=== PATIENT | male | born 1965 | race African-American/Black ===

== ENCOUNTER 2016-10-14 08:52 | Emergency (ER) | payer MEDICAID, OTHER ==
[~2016-10-14] VITALS: Ht 167.6 cm; Wt 111.1 kg
[2016-10-14 09:16] VITALS: BP 143/91
== END 2016-10-14 10:21 | disposition home or self-care (01) ==
LOC: ER 08:52
DX: J40 Bronchitis, not specified as acute or chronic (principal); E78.5 Hyperlipidemia, unspecified; I10 Essential (primary) hypertension
CPT/HCPCS: 71020

== ENCOUNTER 2017-08-16 07:48 | Emergency (ER) | payer OTHER ==
[~2017-08-16] VITALS: Ht 167.6 cm; Wt 107.5 kg
[2017-08-16 07:53] VITALS: BP 148/95
== END 2017-08-16 11:47 | disposition left against medical advice (07) ==
LOC: ER 07:48
DX: R11.2 Nausea with vomiting, unspecified (principal); Z53.21 Procedure and treatment not carried out due to patient leaving prior to being seen by health care provider

== ENCOUNTER 2023-06-07 16:51 | Emergency (ER) | payer OTHER ==
[~2023-06-07] VITALS: Ht 167.6 cm; Wt 109.0 kg
[2023-06-07] MEDS ORDERED: SODIUM CHLORIDE 0.9% 500 ML IVB ONE (17:00)
[2023-06-07 17:05] VITALS: PULSE 95; RESP 16; TEMP 98.6; O2SAT 93
[2023-06-07 17:14] VITALS: BP 150/92; RESP 12; O2SAT 89
[2023-06-07 17:14] LABS: Basophils # (auto) 0 10 ^3/uL (0-0.2); Basophils % (auto) 0.4 % (0.0-2.0); Eosinophils # (auto) 0 10 ^3/uL (0-0.8); Eosinophils % (auto) 0.3 % (0.0-7.0); Hematocrit 45.4 % (41.0-53.0); Hemoglobin 14.9 g/dL (13.5-17.5); Lymphocytes # (auto) 1.6 10 ^3/uL (0.4-5.4); Lymphocytes % (auto) 22.1 % (10.0-50.0); Mean Corpuscular Hemoglobin 30.4 pg (28.0-32.0); Mean Corpuscular Volume 92.3 fL (80.0-100.0); Monocytes # (auto) 0.7 10 ^3/uL (0-1.3); Monocytes % (auto) 9.3 % (0.0-12.0); Neutrophils # (auto) 4.9 10 ^3/uL (1.6-8.6); Neutrophils % (auto) 67.9 % (37.0-80.0); Nucleated Red Blood Cells % 0.2 %; Red Blood Cells 4.91 10^6/uL (4.5-5.90); Red Cell Distribution Width 14.3 % (11.8-14.3); White Blood Cell 7.3 10^3/uL (4.4-10.8)
[2023-06-07 17:33] LABS: Alanine Aminotransferase 20 U/L (7-40); Albumin 4.4 g/dL (3.2-4.8); Alkaline Phosphatase 69 U/L (46-116); Anion Gap 16 (5-15); Aspartate Aminotransferase 27 U/L (13-40); BUN/Creatinine Ratio 10.6 (10.0-20.0); Bilirubin, Total 0.4 mg/dL (0.2-1.0); Blood Alcohol 40.2 mg/dL (<10); Blood Urea Nitrogen 13 mg/dL (9-23); Calcium 8.5 mg/dL (8.7-10.4); Carbon Dioxide 17 mmol/L (20-30); Chloride 106 mmol/L (98-107); Glucose 199 mg/dL (74-106); Sodium 139 mmol/L (136-145); Total Protein 7.2 g/dL (5.7-8.2)
[2023-06-07] MEDS ORDERED: POTASSIUM CHL 20 Meq TABLET PO ONE (18:15)
[2023-06-07 18:22] VITALS: PULSE 87
== END 2023-06-07 19:00 | disposition left against medical advice (07) ==
LOC: EDBD 16:51 → ER 16:51
DX: F19.90 Other psychoactive substance use, unspecified, uncomplicated (principal); I10 Essential (primary) hypertension
CPT/HCPCS: 36415; 71045; 80053; 80320; 85025; 93005; 96360; 99285; J7040